=== PATIENT | female | born 1960 | race Caucasian/White ===

== ENCOUNTER 2017-12-18 11:24 | Emergency (ER) | payer OTHER, MEDICARE ==
[~2017-12-18] VITALS: Ht 170.2 cm; Wt 123.4 kg
[~2017-12-18 11:24] MED LIST: ANTIVERT12.5 M1 PO
[2017-12-18 12:10] LABS: ABSOLUTE BASOPHIL COUNT 0 /CUMM (0.0-0.2); ABSOLUTE EOSINOPHIL COUNT 0.2 /CUMM (0.0-0.7); ABSOLUTE GRANULOCYTE CT 3.7 /CUMM (1.4-6.5); ABSOLUTE LYMPH COUNT 1.2 /CUMM (1.2-3.4); ABSOLUTE MONOCYTE COUNT 0.6 /CUMM (0.10-0.60); BASOPHIL % 0.3 % (0.0-2.0); EOSINOPHIL % 3.7 % (0-5); GRANULOCYTE % 63.8 % (42.2-75.2); HEMATOCRIT 34.6 % (37-47); MEAN CORPUSCULAR HGB 28.8 PG (27.0-31.0); MEAN CORPUSCULAR HGB CONC 33.4 G/DL (33.0-37.0); MEAN CORPUSCULAR VOLUME 86.2 FL (81.0-99.0); MEAN PLATELET VOLUME 6.9 FL (7.4-10.4); PLATELET COUNT 317 /CUMM (130-400); RBC DISTRIBUTION WIDTH 14.1 % (11.5-14.5); RED BLOOD CELL CT 4.01 /CUMM (4.20-5.40); WHITE BLOOD CELL COUNT 5.8 /CUMM (4.8-10.8)
--- NOTE | 2017-12-18 12:16 | ED GENERAL ADULT ---
History of Present Illness General Chief Complaint: Chest Pain Stated Complaint: PT IS HAVING CHEST PAIN Allergies Coded Allergies: Penicillins (RASH 01/31/16) adhesive (UNKNOWN 01/31/16) cefadroxil (From Duricef) (RASH 01/31/16) ciprofloxacin (From Cipro) (RASH 01/31/16) erythromycin base (From Erythrocin) (RASH 01/31/16) cephalexin (From Keflex) (GI 01/31/16) Uncoded Allergies: TAPE (01/31/16) Reconcile Medications Meclizine HCl (Antivert) 12.5 MG TABLET 1 TAB PO TID PRN DIZZINESS Triage Note: PT REPORTS HAVING CHESTPAIN WHILE AT WORK RESOLVED AFTER TAKING 1 NITRO. PT REPORTS HAVING STENTS PLACED 5 YEARS AGO AFTER ?[place]. PT STATES SHE THINK IT IS STRESS RELATED. EKG COMPLETED IN [place], PT APPEAR IN NO DISTRESS AT THIS TIME. Onset: Abrupt Duration: hour(s): Timing: recent history HPI: 12/18/17 3 PM I've seen and personally examined the patient and I agree with the resident's evaluation above. She is a 57-year-old female who presents to the emergency department complaining of chest pain. The chest pain is sharp and occurred after a stressful situation. She does have a history of a prior stent. She does not smoke. (Urbano WALTER,Connor Santillan) General Source: patient Exam Limitations: no limitations Vital Signs & Intake/Output Vital Signs & Intake/Output Vital Signs Date Time Temp Pulse Resp B/P B/P Pulse O2 O2 Flow FiO2 Mean Ox Delivery Rate 12/18 1425 98.8 87 18 129/59 98 12/18 1151 98.0 91 18 151/83 100 Room Air Room Air Triage Nurses Notes Reviewed? yes HPI: 57yoF w/ hx of [place], CAD (stent placed 5yo), anxiety, GERD, HTN, T2DM and HLD p/w CP. She was at work this morning and about 11:15, had a sharp, stabbing pain 8/10 in her epigastric region. Pain was associated w/ diaphoresis. She denied any SOb, palpitations, radiation of pain or any numbness. She took a dose of nitroglycerin and pain resolved immediately. She is currently not having any sx. She has had a stressful week and a stress time at work today (she is packing and getting ready to move to [place]; her computer wasn't working this morning and customers were complaining). She has over 36pack years smoking hx; last smoke 5ya. She denies any otgher toxic habits except for social drinking Shx lap band, stent, ovarian cyst removal, fibroids removal and gall bladder removal. Reports taking all of her meds as directed. (Nida STUDENTShayne) Past History Travel History Traveled to [facility] past 21 day No Medical History Neurological: NONE EENT: NONE Cardiovascular: hypertension, hyperlipidemia Respiratory: NONE Gastrointestinal: NONE Hepatic: NONE Renal: NONE Musculoskeletal: NONE Psychiatric: bipolar disease, depression Endocrine: diabetes Blood Disorders: NONE Cancer(s): NONE Surgical History Surgical History: non-contributory Psychosocial History Who do you live with Mother Services at Home None What is your primary language Palestinian Tobacco Use: Never used (Connor Clement DO) Medical History Any Pertinent Medical History? see below for history Surgical History Surgical History: cholecystectomy Family History Hx Contributory? Yes (Shayne Garcia) Review of Systems Review of Systems EENTM: Denies: visual changes. Respiratory: Denies: short of breath. Cardiovascular: Reports: chest pain. GI: Denies: abdominal pain. Genitourinary: Reports: no symptoms. Musculoskeletal: Reports: no symptoms. Skin: Reports: no symptoms. Neurological/Psychological: Reports: no symptoms. Hematologic/Endocrine: Reports: no symptoms. Immunologic/Allergic: Reports: no symptoms. (Connor Clement DO) Review of Systems Constitutional: Reports: see HPI. (Nida STUDENTShayne) Physical Exam Physical Exam Head: atraumatic, normal appearance Eyes: Bilateral: normal appearance, PERRL, EOMI. Ears, Nose, Throat: normal ENT inspection Neck: supple Respiratory: no respiratory distress Cardiovascular: regular rate/rhythm Peripheral Pulses: 4+ radial (R), 4+ radial (L) Gastrointestinal: non-tender Back: normal range of motion Extremities: pedal edema Neurologic/Psych: no motor/sensory deficits, awake, alert, oriented x 3 Skin: intact, normal color, warm/dry (Connor Clement DO) Physical Exam General Appearance: well developed/nourished, alert, awake, comfortable, obese Core Measures ACS in differential dx? Yes CVA/TIA Diagnosis: No Sepsis Present: No Sepsis Focused Exam Completed? No (Hieu-Ricky STUDENT,Shayne) Progress Differential Diagnoses I considered the following diagnoses in my evaluation of the patient: Prior EKG: unchanged (Connor Clement DO) Differential Diagnoses I considered the following diagnoses in my evaluation of the patient: Including but not limited to [ACS, GERD, PNA, Anxiety, hiatal hernia] Plan of Care: Orders Procedure Date/time Status TROPONIN LEVEL 12/18 1450 Complete EKG 12/18 1450 Active TROPONIN LEVEL 12/18 1150 Complete COMPREHENSIVE METABOLIC PANEL 12/18 1150 Complete CBC WITHOUT DIFFERENTIAL 12/18 1150 Complete EKG 12/18 1127 Active Laboratory Tests 12/18/17 1449: Troponin I < 0.01 12/18/17 1155: Anion Gap 15, Estimated GFR > 60, BUN/Creatinine Ratio 11.1, Glucose 184 H, Calcium 9.4, Total Bilirubin 0.4, AST 20, ALT 26, Alkaline Phosphatase 148 H, Troponin I < 0.01, Total Protein 7.1, Albumin 4.4, Globulin 2.7, Albumin/ Globulin Ratio 1.6, CBC w Diff NO MAN DIFF REQ, RBC 4.01 L, MCV 86.2, MCH 28.8, MCHC 33.4, RDW 14.1, MPV 6.9 L, Gran % 63.8, Lymphocytes % 21.5, Monocytes % 10.7 H, Eosinophils % 3.7, Basophils % 0.3, Absolute Granulocytes 3.7, Absolute Lymphocytes 1.2, Absolute Monocytes 0.6, Absolute Eosinophils 0.2, Absolute Basophils 0 12/18/17 4:30 PM Chest x-ray is negative. Labs are unremarkable. Repeat EKG is unchanged. She has 2 negative troponins. She is being discharged on follow-up with her doctor on Wednesday. She will return to the emergency department if worse. (Connor Clement DO) 12:43 Patient w/ CP likely anxiety driven considering her hx and HPI. However, HEART score of at least 4 (awaiting trops), will order CXR, trops, CBC, CMP for initial work up. 1:33 Trops negative and no change in CXR. Labs significant for Hgb of 11.5, alk phos 148 and blood sugar of 184. Patient comfortable and has not had any chest pain since being here. Awaiting repeat trops. Initial ED EKG: normal intervals, normal p-waves, normal QRS complex, normal sinus rhythm (Opare-Ricky STUDENT,Shayne) Departure Departure Disposition: STILL A PATIENT Condition: Stable Clinical Impression Primary Impression: Chest pain Referrals: Patricia Monsivais APRN (PCP/Family) Departure Forms: Customer Survey General Discharge Information Comments I considered the diagnosis of pulmonary embolism. The patient has no shortness of breath. No tachycardia. She had sharp retrosternal chest pain that resolved after a stressful incident. Chest x-ray results shown below IMPRESSION: No acute cardiopulmonary disease. DICTATED BY: Isaiah Romero MD DATE/TIME DICTATED:12/18/171339 LIP CUTTER:LINDSEY DATE/TIME TRANSCRIBED:12/18/171339 CONFIDENTIAL, DO NOT COPY WITHOUT APPROPRIATE AUTHORIZATION. <Electronically signed in Other Vendor System> SIGNED BY: Isaiah Romero MD 12/18/17 2618 (Connor Clement DO) Critical Care Note Critical Care Note Critical Care Time: non-applicable (Connor Clement DO)
--- NOTE | 2017-12-18 13:45 | RADIOLOGY REPORT ---
EXAMINATION: XR PORTABLE CHEST CLINICAL INFORMATION: Chest pain. COMPARISON: Chest done on 07/20/2011. TECHNIQUE: Portable frontal view of the chest was obtained. FINDINGS: Both lungs are symmetrically expanded and are clear. The cardiomediastinal silhouette is within normal limit. There is no pleural effusion or pneumothorax present. The visualized upper abdomen is unremarkable. No significant change since 07/20/2011. IMPRESSION: No acute cardiopulmonary disease.
[2017-12-18 16:46] VITALS: BP 130/67
== END 2017-12-18 16:47 ==
LOC: ERH 11:24
PROVIDERS: Emergency Medicine
DX: R07.9 Chest pain, unspecified (principal)
CPT/HCPCS: 71045; 93005; 93010